=== PATIENT | female | born 1995 | race Caucasian/White ===

== ENCOUNTER 2023-10-12 13:38 | Outpatient (CLI) | payer OTHER, SELFPAY ==
[2023-10-12 13:44] LABS: Appearance Urine Clear (Clear); Bilirubin Urine Negative (Negative); Blood Urine Negative (Negative); Color Urine Yellow (Yellow); Glucose Urine Negative (Negative); Ketones Urine Trace (Negative); Leukocyte Esterase Urine Negative (Negative); Nitrite Urine Negative (Negative); Protein Urine Negative (Negative); Specific Gravity Urine >= 1.030 (1.000-1.030); Urobilinogen Urine 0.2 (0.2-1.0)
== END 2023-10-12 13:39 | disposition home or self-care (01) ==
PROVIDERS: Visit Provider Obstetrics & Gynecology
DX: R10.2 Pelvic and perineal pain (principal)
CPT/HCPCS: 81003

== ENCOUNTER 2024-02-07 14:00 | Outpatient (RCR) | payer OTHER, SELFPAY | END 2024-04-25 10:28 | disposition home or self-care (01) | PROVIDERS: Visit Provider Obstetrics & Gynecology | DX: N39.3 Stress incontinence (female) (male) (principal); R35.0 Frequency of micturition; N94.2 Vaginismus; R27.8 Other lack of coordination; Z51.89 Encounter for other specified aftercare | CPT/HCPCS: 97012; 97110; 97112; 97140; 97161; 97530; 97535 ==